=== PATIENT | female | born 1970 | race Caucasian/White ===

== ENCOUNTER → 2016-05-20 | Outpatient (CLI) | payer BC ==
[~2016-05-20] MED LIST: BENTYL10 MG PO; CIPRO500 MG PO; DIFLUCAN150 MG PO; DILAUDID2 MG PO; GABAPENTIN100 MG PO; HYDROCODON-ACE1 EAC7 PO; KLONOPIN0.5 M1 PO; KLOR-CON 1010 ME1 PO; LINZESS290 MCG PO; MORPHINE SULFAT15 M1 PO; PANTOPRAZOLE SO40 MG PO; TOPAMAX100 MG PO; WELLBUTRIN XL300 MG PO; ZOFRAN ODT4 MG PO
== END | disposition home or self-care (01) ==
LOC: CDC 15:18
DX: Z01.810 Encounter for preprocedural cardiovascular examination (principal); K59.00 Constipation, unspecified
CPT/HCPCS: 93000

== ENCOUNTER 2016-05-27 05:22 | Inpatient (IN) | payer BC ==
[~2016-05-27] VITALS: Ht 162.6 cm; Wt 70.0 kg
[~2016-05-27 05:22] MED LIST changes: +ADVIL200 MG PO; +KLONOPIN1 MG PO; +ZOFRAN4 MG PO
[2016-05-27 06:13] VITALS: BP 117/65
[2016-05-27 16:45] VITALS: BP 100/59
[2016-05-27 18:12] LABS: HEMATOCRIT 35.7 % (36.0-46.0); MCHC 31.7 G/DL (30.0-36.0); MCV 94.7 FL (83-99); MEAN PLAT.VOLUME 9.7 uM^3 (9.5-12.4); PLATELET COUNT 401 K/uL (156-360); RBC DIS.WIDTH-CV 12.7 % (11.8-14.6); RED BLOOD COUNT 3.77 M/uL (3.80-5.20)
[2016-05-27 18:27] LABS: ANION GAP 8 MEQ/L (2-14); CHLORIDE 108 MEQ/L (99-109); GFR ESTIMATE (CALCULATED) > 59 mL/min/; GLUCOSE 191 mg/dL (70-99); MAGNESIUM 2.1 mg/dl (1.3-2.7); POTASSIUM 3.3 MEQ/L (3.7-5.4); SAMPLE HEMOLYSIS CHECK 0; SAMPLE ICTERIC CHECK 0; SAMPLE LIPEMIA CHECK 0; SODIUM 138 MEQ/L (136-147); UREA NITROGEN (BUN) 7 mg/dL (9-23)
[2016-05-27 18:35] LABS: WHITE BLOOD COUNT 17.7 K/uL (4.1-10.2)
[2016-05-27 19:00] VITALS: BP 121/64
[2016-05-27 22:55] VITALS: BP 112/56
[2016-05-27 23:59] VITALS: BP 162/70
[2016-05-28 02:59] VITALS: BP 116/56
[2016-05-28 07:05] VITALS: BP 112/61
[2016-05-28 07:28] LABS: HEMATOCRIT 28.3 % (36.0-46.0); MCH 31.3 PG (29.0-34.0); MCHC 33.2 G/DL (30.0-36.0); MCV 94.3 FL (83-99); MEAN PLAT.VOLUME 9.7 uM^3 (9.5-12.4); PLATELET COUNT 333 K/uL (156-360); RBC DIS.WIDTH-CV 12.8 % (11.8-14.6); RBC DIS.WIDTH-SD 43.9 % (39-53); WHITE BLOOD COUNT 11.3 K/uL (4.1-10.2)
[2016-05-28 07:37] LABS: ANION GAP 5 MEQ/L (2-14); CHLORIDE 107 MEQ/L (99-109); GFR ESTIMATE (CALCULATED) > 59 mL/min/; GLUCOSE 123 mg/dL (70-99); SAMPLE HEMOLYSIS CHECK 0; SAMPLE ICTERIC CHECK 0; SAMPLE LIPEMIA CHECK 0; SODIUM 138 MEQ/L (136-147); UREA NITROGEN (BUN) 8 mg/dL (9-23)
[2016-05-28 07:38] LABS: POTASSIUM 4.2 MEQ/L (3.7-5.4)
[2016-05-28 15:45] VITALS: BP 100/66
[2016-05-28 20:23] VITALS: BP 109/64
[2016-05-28 23:30] VITALS: BP 102/53
[2016-05-29 06:40] LABS: ANION GAP 2 MEQ/L (2-14); CHLORIDE 107 MEQ/L (99-109); GFR ESTIMATE (CALCULATED) > 59 mL/min/; GLUCOSE 113 mg/dL (70-99); MAGNESIUM 1.9 mg/dl (1.3-2.7); SAMPLE HEMOLYSIS CHECK 0; SAMPLE ICTERIC CHECK 0; SAMPLE LIPEMIA CHECK 0; SODIUM 137 MEQ/L (136-147); UREA NITROGEN (BUN) 4 mg/dL (9-23)
[2016-05-29 06:50] LABS: HEMATOCRIT 25.1 % (36.0-46.0); MCH 31.3 PG (29.0-34.0); MCHC 32.7 G/DL (30.0-36.0); MCV 95.8 FL (83-99); MEAN PLAT.VOLUME 9.5 uM^3 (9.5-12.4); PLATELET COUNT 246 K/uL (156-360); RBC DIS.WIDTH-SD 45.2 % (39-53); RED BLOOD COUNT 2.62 M/uL (3.80-5.20)
[2016-05-29 06:51] LABS: WHITE BLOOD COUNT 7.5 K/uL (4.1-10.2)
[2016-05-29 07:30] VITALS: BP 112/59
[2016-05-29 12:40] VITALS: BP 102/59
[2016-05-29 15:40] VITALS: BP 103/57
[2016-05-29 19:25] VITALS: BP 120/62
[2016-05-29 23:17] VITALS: BP 117/59
[2016-05-30 03:52] VITALS: BP 123/60
[2016-05-30 08:11] VITALS: BP 117/68
[2016-05-30 09:12] LABS: MCH 31.8 PG (29.0-34.0); MCHC 33.5 G/DL (30.0-36.0); MCV 94.9 FL (83-99); MEAN PLAT.VOLUME 9.3 uM^3 (9.5-12.4); PLATELET COUNT 258 K/uL (156-360); RBC DIS.WIDTH-CV 12.8 % (11.8-14.6); RBC DIS.WIDTH-SD 44.2 % (39-53); RED BLOOD COUNT 2.74 M/uL (3.80-5.20); WHITE BLOOD COUNT 6.6 K/uL (4.1-10.2)
[2016-05-30 09:45] LABS: ANION GAP 5 MEQ/L (2-14); CHLORIDE 104 MEQ/L (99-109); GFR ESTIMATE (CALCULATED) > 59 mL/min/; GLUCOSE 103 mg/dL (70-99); MAGNESIUM 1.9 mg/dl (1.3-2.7); POTASSIUM 3.9 MEQ/L (3.7-5.4); SAMPLE HEMOLYSIS CHECK 0; SAMPLE ICTERIC CHECK 0; SAMPLE LIPEMIA CHECK 0; SODIUM 137 MEQ/L (136-147); UREA NITROGEN (BUN) 3 mg/dL (9-23)
[2016-05-30 12:34] VITALS: BP 116/62
[2016-05-30 16:25] VITALS: BP 125/68
[2016-05-30 19:57] VITALS: BP 113/65
[2016-05-31 00:05] VITALS: BP 106/55
[2016-05-31 07:33] LABS: HEMATOCRIT 29.1 % (36.0-46.0); MCH 30.2 PG (29.0-34.0); MCHC 32.3 G/DL (30.0-36.0); MCV 93.6 FL (83-99); MEAN PLAT.VOLUME 9.5 uM^3 (9.5-12.4); PLATELET COUNT 328 K/uL (156-360); RBC DIS.WIDTH-CV 12.9 % (11.8-14.6); RED BLOOD COUNT 3.11 M/uL (3.80-5.20); WHITE BLOOD COUNT 5.9 K/uL (4.1-10.2)
[2016-05-31 07:42] VITALS: BP 125/61
[2016-05-31 07:55] LABS: ANION GAP 8 MEQ/L (2-14); CHLORIDE 104 MEQ/L (99-109); GFR ESTIMATE (CALCULATED) > 59 mL/min/; GLUCOSE 106 mg/dL (70-99); POTASSIUM 4.1 MEQ/L (3.7-5.4); SAMPLE HEMOLYSIS CHECK 0; SAMPLE ICTERIC CHECK 0; SAMPLE LIPEMIA CHECK 0; SODIUM 139 MEQ/L (136-147); UREA NITROGEN (BUN) 3 mg/dL (9-23)
[2016-05-31 14:55] VITALS: BP 113/62
[2016-05-31 23:07] VITALS: BP 113/67
[2016-06-01 07:38] LABS: ANION GAP 8 MEQ/L (2-14); CHLORIDE 104 MEQ/L (99-109); GFR ESTIMATE (CALCULATED) > 59 mL/min/; GLUCOSE 99 mg/dL (70-99); POTASSIUM 4.7 MEQ/L (3.7-5.4); SAMPLE HEMOLYSIS CHECK 0; SAMPLE ICTERIC CHECK 0; SAMPLE LIPEMIA CHECK 0; SODIUM 139 MEQ/L (136-147); UREA NITROGEN (BUN) 6 mg/dL (9-23)
[2016-06-01 07:39] LABS: MCH 30.2 PG (29.0-34.0); MCHC 32.5 G/DL (30.0-36.0); MEAN PLAT.VOLUME 9.4 uM^3 (9.5-12.4); RBC DIS.WIDTH-CV 13.1 % (11.8-14.6); RBC DIS.WIDTH-SD 44.1 % (39-53)
[2016-06-01 07:41] LABS: PLATELET COUNT 436 K/uL (156-360); RED BLOOD COUNT 3.87 M/uL (3.80-5.20); WHITE BLOOD COUNT 10.1 K/uL (4.1-10.2)
[2016-06-01 08:11] VITALS: BP 117/69
[2016-06-01] MEDS ORDERED: ENDOCET 5-3251 EACH PO (09:21)
== END 2016-06-01 10:19 | disposition home or self-care (01) | DRG 331 ==
LOC: 2SOUTH 05:22 → 2EAST 05:43 → 2SOUTH 05:43 → 2EAST 16:32
PROVIDERS: Physician Assistant; Surgery
PROC: 0DTE0ZZ Resection of Large Intestine, Open Approach (ICD-10-PCS; principal; 2016-05-29)
DX: K59.8 Other specified functional intestinal disorders (principal); K59.09 Other constipation; E87.6 Hypokalemia; Z98.84 Bariatric surgery status; R94.31 Abnormal electrocardiogram [ECG] [EKG]; D64.9 Anemia, unspecified
CPT/HCPCS: 80048; 83735; 84100; 85027; 88307; J0131; J1100; J1170; J1335; J1650; J1885; J2250; J2405; J2710; J2765; J3010; J7050; J7120